=== PATIENT | male | born 1945 | race Caucasian/White ===

== ENCOUNTER 2017-10-12 07:13 | Day surgery (SDC) | payer MEDICAID ==
[2017-10-12] MEDS ORDERED: Lactated Ringer's 1,000 ML IV ONE (07:49)
[2017-10-12] MEDS ORDERED: Midazolam 2 MG/2 ML VIAL ONE (08:47)
[2017-10-12] MEDS ORDERED: Propofol 10 mg/ml Inj (20 ML) ONE (08:47)
[2017-10-12] MEDS ORDERED: Etomidate 20 mg/10ml Inj IV ONE (08:47)
[2017-10-12] MEDS ORDERED: EPINEPHrine 1 mg/ml (1:1000) Inj ONE (09:33)
[2017-10-12 10:09] VITALS: TEMP 97.8; O2SAT 96
[2017-10-12 10:23] VITALS: BP 122/63; PULSE 72; RESP 20
== END 2017-10-12 11:34 | disposition home or self-care (01) ==
LOC: H.ENDO 07:13
PROVIDERS: ATTEND Internal Medicine Gastroenterology
DX: Z86.010 Personal history of colon polyps (principal); D12.3 Benign neoplasm of transverse colon; D12.0 Benign neoplasm of cecum; J44.9 Chronic obstructive pulmonary disease, unspecified; G47.33 Obstructive sleep apnea (adult) (pediatric); E78.5 Hyperlipidemia, unspecified; I10 Essential (primary) hypertension
CPT/HCPCS: 45380; 45385; 88305; J0171; J2250; J2704; J7120

== ENCOUNTER 2017-12-25 07:29 | Day surgery (SDC) | payer MEDICAID ==
[2017-12-25] MEDS ORDERED: Lactated Ringer's 500 ML IV ONE (08:48)
[2017-12-25] MEDS ORDERED: Propofol 10 mg/ml Inj (20 ML) ONE (10:40)
--- NOTE | 2017-12-25 10:43 | CP.SDSHP ---
Same Day Surgery H & P - History Proposed Procedure: Colonoscopy Pre-Op Diagnosis: Cecal polyp - piecemeal polypectomy, follow up - Previous Medical/Surgical History Cardiac: ASHD/CAD Misc: Other (prostate, lung cancer, osteoarthritis, hyperlipidemia) Pain: 0. No Pain Previous Surgical History: CABG - Allergies Allergies: Allergies No Known Allergies Allergy (Verified 10/12/17 07:59) - Current Medications Current Medications: See MAR - Physical Exam Vital Signs: Vital Signs 12/25/17 09:03 Temperature 97.4 F L Pulse Rate 68 Respiratory 16 Rate Blood Pressure 109/60 O2 Sat by Pulse 95 Oximetry Mental Status: Alert & Oriented x3 Neuro: WNL Heart: WNL Lungs: WNL GI: WNL - {Optional Preform as Required} Abdomen: WNL - Impression Impression: Plan for colonoscopy. Coumadin held prior to procedure, INR today is 1.4. Pt. Evaluated Today:Candidate for Anesthesia & Procedure: Yes - Date & Time Date: 12/25/17 Time: 10:20 Short Stay Discharge - Short Stay Discharge Admitting Diagnosis/Reason for Visit: POLYP Disposition: HOME/ ROUTINE Referrals: Kory Matta MD [Primary Care Provider] -
[2017-12-25 11:45] VITALS: TEMP 96.8
[2017-12-25 11:58] VITALS: BP 110/59; PULSE 62; RESP 16; O2SAT 98
== END 2017-12-25 12:17 | disposition home or self-care (01) ==
LOC: H.ENDO 07:29
PROVIDERS: ATTEND Internal Medicine Gastroenterology
DX: Z86.010 Personal history of colon polyps (principal); J44.9 Chronic obstructive pulmonary disease, unspecified; E78.5 Hyperlipidemia, unspecified; K64.0 First degree hemorrhoids; D12.0 Benign neoplasm of cecum; D12.3 Benign neoplasm of transverse colon; I25.10 Atherosclerotic heart disease of native coronary artery without angina pectoris; M19.90 Unspecified osteoarthritis, unspecified site; Z95.1 Presence of aortocoronary bypass graft; Z85.118 Personal history of other malignant neoplasm of bronchus and lung
CPT/HCPCS: 45385; 88305; J2001; J2704; J7120

== ENCOUNTER 2018-04-16 07:03 | Day surgery (SDC) | payer MEDICAID ==
[2018-04-16] MEDS ORDERED: Lactated Ringer's 500 ML IV ONE (08:03)
--- NOTE | 2018-04-16 08:46 | CP.SDSHP ---
Same Day Surgery H & P - History Proposed Procedure: colonoscopy Pre-Op Diagnosis: colon screening - Previous Medical/Surgical History Cardiac: Hypertension Pulmonary: Asthma - Allergies Allergies: Allergies No Known Allergies Allergy (Verified 10/12/17 07:59) - Physical Exam General Appearance: no acute distress Vital Signs: Vital Signs 04/16/18 08:25 Temperature 97.4 F L Pulse Rate 72 Respiratory 15 Rate Blood Pressure 116/71 O2 Sat by Pulse 96 Oximetry Mental Status: Alert & Oriented x3 Neuro: WNL Heart: WNL Lungs: WNL GI: WNL - {Optional Preform as Required} Abdomen: WNL - Impression Impression: colon screening Pt. Evaluated Today:Candidate for Anesthesia & Procedure: Yes - Date & Time Date: 04/16/18 Time: 08:30 Short Stay Discharge - Short Stay Discharge Admitting Diagnosis/Reason for Visit: POLYP SERVEILLANCE Disposition: HOME/ ROUTINE Referrals: Kory Matta MD [Primary Care Provider] -
[2018-04-16] MEDS ORDERED: Propofol 10 mg/ml Inj (20 ML) ONE (09:43)
[2018-04-16 10:32] VITALS: TEMP 97; O2SAT 100
[2018-04-16 10:50] VITALS: BP 116/74; PULSE 70; RESP 13
== END 2018-04-16 11:30 | disposition home or self-care (01) ==
LOC: H.ENDO 07:03
PROVIDERS: ATTEND Internal Medicine Gastroenterology
DX: Z12.11 Encounter for screening for malignant neoplasm of colon (principal); D12.2 Benign neoplasm of ascending colon; K64.8 Other hemorrhoids; I10 Essential (primary) hypertension; J45.909 Unspecified asthma, uncomplicated
CPT/HCPCS: 45380; 88305; J2001; J2704; J3010; J7120